=== PATIENT | female | born 1985 | race Caucasian/White ===

== ENCOUNTER 2018-05-29 01:45 | Emergency (ER) | payer OTHER ==
[~2018-05-29] VITALS: Ht 157.5 cm; Wt 54.4 kg
[2018-05-29 01:50] VITALS: BP 136/107
[2018-05-29 03:49] VITALS: BP 129/80
== END 2018-05-29 03:48 | disposition home or self-care (01) ==
LOC: MED 01:45
DX: S00.531A Contusion of lip, initial encounter (principal); F10.129 Alcohol abuse with intoxication, unspecified; W06.XXXA Fall from bed, initial encounter; Y93.89 Activity, other specified; Y92.89 Other specified places as the place of occurrence of the external cause; Y99.8 Other external cause status
CPT/HCPCS: 70450; 72125; 81025; 99284

== ENCOUNTER 2019-07-31 13:57 | Emergency (ER) | payer OTHER ==
[~2019-07-31] VITALS: Ht 157.5 cm; Wt 74.5 kg
[2019-07-31 14:08] VITALS: BP 146/112
--- NOTE | 2019-07-31 15:10 | NUR ---
PT AMBULATED TO BATHROOM, STEADY GAIT.
--- NOTE | 2019-07-31 15:15 | NUR ---
NOEL FORTUNE EVALUATING PT AT BEDSIDE
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
--- NOTE | 2019-07-31 16:03 | NUR ---
NOEL FORTUNE AT BEDSIDE.
[2019-07-31] MEDS ORDERED: traMADol 50 MG TAB PO ONE (16:05)
[2019-07-31 16:23] VITALS: BP 145/95
--- NOTE | 2019-07-31 16:37 | NUR ---
Patient discharged with v/s stable. Written and verbal after care instructions given and explained. Patient alert, oriented and verbalized understanding of instructions. Ambulatory with steady gait. All questions addressed prior to discharge. ID band removed. Patient advised to follow up with PMD. Rx of tramadol, ibuprofen given. Patient educated on indication of medication including possible reaction and side effects. Opportunity to ask questions provided and answered.
== END 2019-07-31 16:37 | disposition home or self-care (01) ==
LOC: MED 13:57
DX: R51 Headache (principal); M54.9 Dorsalgia, unspecified
CPT/HCPCS: 72100; 81025; 99283